=== PATIENT | male | born 1950 | race Two or more races ===

== ENCOUNTER 2022-10-12 16:05 | Inpatient (IN) | payer MEDICARE ==
[~2022-10-12] VITALS: Ht 172.7 cm; Wt 68.0 kg
--- NOTE | 2022-10-12 16:06 | NUR ---
BIB [facility] FROM [facility] C/O SHORTNESS OF BREATH SINCE BEING DISCHARGE FROM [facility]AVING PNEUMONIA 09/24,WORSE THE LAST COUPLE DAYS, RECEIVED 5MG ALBUTEROL MICRO PALEONTOLOGIST. THE PATIENT IS RECEIVED WEARING NON-REBREATHER WITH OXYGEN SAT AT 100%. THE PATIENT IS NOT ALERT. THE PATIENT IS ATTACHED TO THE MONITOR. WILL CONTINUE TO MONITOR THE PATIENT.
--- NOTE | 2022-10-12 16:35 | NUR ---
IV LINE IS ESTABLISHED, BLOOD SPECIMEN COLLECTED AND SENT TO THE LAB. THE LINE IS SALINE LOCKED.
--- NOTE | 2022-10-12 16:35 | NUR ---
CONDOMINIUM MANAGER AT THE BEDSIDE
--- NOTE | 2022-10-12 16:40 | NUR ---
COVID ANTIGEN SWAB DONE AND SENT TO THE LAB
[2022-10-12 16:56] LABS: BASOPHILS % (AUTO) 0.1 % (0.0-2.0); EOSINOPHILS % (AUTO) 0.2 % (0.0-6.0); HEMATOCRIT 29 % (39-51); HEMOGLOBIN 8.7 g/dL (13.5-17.5); LYMPHOCYTES # (AUTO) 0.4 K/uL (0.8-4.8); LYMPHOCYTES % (AUTO) 2.9 % (20.0-44.0); MEAN CORPUSCULAR HGB CONC 30 g/dl (31.0-36.0); MEAN CORPUSCULAR VOLUME 96 fL (80-96); MONOCYTES # (AUTO) 0.9 K/uL (0.1-1.30); MONOCYTES % (AUTO) 7.3 % (2.0-12.0); NEUTROPHILS # (AUTO) 11.3 K/uL (1.8-8.9); NEUTROPHILS % (AUTO) 89.5 % (43.0-81.0); PLATELET COUNT (AUTO) 190 K/uL (150-450); RED BLOOD CELL COUNT(AUTO) 3.04 MIL/uL (4.5-6.0); WHITE BLOOD COUNT (AUTO) 12.6 K/uL (4.3-11.0)
[2022-10-12 17:00] LABS: CALCIUM, SERUM 11.1 mg/dL (8.5-10.1); CARBON DIOXIDE 36 mmol/L (21-32); CHLORIDE 100 mmol/L (98-107); CREATININE 1.2 mg/dL (0.6-1.3); GLUCOSE 152 mg/dL (74-106); POTASSIUM 5.2 mmol/L (3.5-5.1); SODIUM SERUM 138 mmol/L (136-145); UREA NITROGEN, BLOOD 50 mg/dL (7-18)
[2022-10-12] MEDS ORDERED: PIPERACILLIN /TAZOBACTAM 3.375 G in IV D5W 50 ML IV ONE (17:00)
[2022-10-12] MEDS ORDERED: VANCOMYCIN 1 GM in IV D5W 250 ML IV ONE (17:00)
--- NOTE | 2022-10-12 17:16 | NUR ---
CALLED NURSING SUP GREGOR PT BED
[2022-10-12] MEDS ORDERED: FUROSEMIDE 40 MG/4 ML VIAL ONE (17:26)
[2022-10-12] MEDS ORDERED: FUROSEMIDE 40 MG/4 ML VIAL IV ONE (17:30)
--- NOTE | 2022-10-12 18:00 | NUR ---
PT PUT ON BIPAP VENTILATION PER MD ORDER 40% RATE OF 18 EPAP 5 O2 SAT 98%
--- NOTE | 2022-10-12 19:39 | NUR ---
RM CHANGE: 254
--- NOTE | 2022-10-12 20:18 | NUR ---
report given to Mikal TORRES
[2022-10-12] MEDS ORDERED: ONDANSETRON HCL/PF 4 MG/2 ML VIAL IVP PRN (20:30)
[2022-10-12] MEDS ORDERED: MAG HYDROX/AL HYDROX/SIMETH 30 ML UDC PO PRN (20:30)
[2022-10-12] MEDS ORDERED: MORPHINE SULFATE INJ 2 MG/ML DISP.SYRIN IV PRN (20:30)
[2022-10-12] MEDS ORDERED: ACETAMINOPHEN 325 MG TABLET PO PRN (20:30)
[2022-10-12] MEDS ORDERED: Z GUARD REMEDY 4 OZ OINT TP PRN (20:30)
[2022-10-12] MEDS ORDERED: MAGNESIUM HYDROXIDE 30 ML UDC PO PRN (20:30)
--- NOTE | 2022-10-12 21:12 | NUR ---
CATERING ATTENDANTSODA FOUNTAIN CLERK NOTES: RECEIVED REPORT FROM CAR PAINTER CLIVE. PT TRANSFERRED TO ICU FROM ER WITH ACLS PROTOCOL. PLACE ROOM 254 BED1. PT AWAKE, ALERT/ORIENTED X3-4 AND VERBALLY RESPONSIVE. ON SIMPLE MASK AT 8L/MIN, O2 SAT 97%. IV ACCESS ON RAC#18G AND LT HAND#18G INTACT AND PATENT. NO S/S OF INFILTRATIONS. CARDIAC MONITORING SINUS RHYTHM. NO C/O PAIN OR DISCOMFORT. NO ACUTE DISTRESS. ABLE TO USE URINAL. BODY ASSESSMENT DONE. NO SKIN DISCOLORATION ON KACIE AND OPEN SORE ON SACRAL AREA. ALL THER PART OF THE BODY INTACT, DRY TO TOUCH. ALL SAFETY MEASURES IN PLACE. BED IN LOWEST POSITION AND LOCKED. JOSHUA RAILS UP X3, PLACE CALL LIGHT WITH IN REACH. WILL CONTINUE TO MONITOR
--- NOTE | 2022-10-12 21:12 | NUR ---
RT NOTE PT RECEIVED ON SIMPLE MASK @ 10 LPM. PT TRANSFERRED FROM ER TO ICU BED 254. PT TOLERATES SIMPLE MASK AT THIS TIME. WILL CONTINUE TO MONITOR CLOSELY.
[2022-10-12 22:00] VITALS: BP 133/80
[2022-10-12] MEDS ORDERED: CEFEPIME 1 GM VIAL ONE (22:24)
[2022-10-12] MEDS: ENOXAPARIN SODIUM 40 MG/0.4 ML DISP.SYRIN SQ SCH (22:30)
[2022-10-12] MEDS: IV NS 0.9% 250 ML IV PRN (22:32)
[2022-10-12] MEDS: CEFEPIME 2 GM in IV D5W 100 ML IV SCH (22:35)
[2022-10-12 23:00] VITALS: BP 127/73
--- NOTE | 2022-10-12 23:20 | NUR ---
RT NOTE PT PLACED BACK ON BIPAP AT THIS TIME. BRIAN WALTER AWARE. WILL CONTINUE TO MONITOR.
[2022-10-13] VITALS (25 sets, daily range): BP systolic 112–151; BP diastolic 60–81
[2022-10-13] MEDS ORDERED: VANCOMYCIN 1 GM VIAL ONE (05:11)
[2022-10-13 05:19] LABS: EOSINOPHILS % (AUTO) 0.1 % (0.0-6.0); HEMATOCRIT 29 % (39-51); HEMOGLOBIN 8.8 g/dL (13.5-17.5); LYMPHOCYTES # (AUTO) 0.2 K/uL (0.8-4.8); LYMPHOCYTES % (AUTO) 2.2 % (20.0-44.0); MEAN CORPUSCULAR HGB CONC 30 g/dl (31.0-36.0); MEAN CORPUSCULAR VOLUME 96 fL (80-96); MONOCYTES # (AUTO) 0.8 K/uL (0.1-1.30); MONOCYTES % (AUTO) 6.7 % (2.0-12.0); NEUTROPHILS # (AUTO) 10.3 K/uL (1.8-8.9); PLATELET COUNT (AUTO) 175 K/uL (150-450); RED BLOOD CELL COUNT(AUTO) 3.02 MIL/uL (4.5-6.0); WHITE BLOOD COUNT (AUTO) 11.4 K/uL (4.3-11.0)
[2022-10-13] MEDS: VANCOMYCIN 0.75 GM in IV D5W 250 ML IV SCH ×2 (05:22→17:17)
[2022-10-13 05:33] LABS: ALBUMIN 2.6 g/dL (3.4-5.0); BILIRUBIN,DIRECT 0.1 mg/dL (0.0-0.2); BILIRUBIN,TOTAL 0.3 mg/dL (0.2-1.0); CALCIUM, SERUM 10.8 mg/dL (8.5-10.1); CREATININE 1.3 mg/dL (0.6-1.3); MAGNESIUM 1.9 mg/dL (1.8-2.4); PHOSPHORUS 5.8 mg/dL (2.5-4.9); POTASSIUM 4.9 mmol/L (3.5-5.1); TOTAL PROTEIN, SERUM 6.7 g/dL (6.4-8.2)
[2022-10-13 05:43] LABS: THYROID STIMULATING HORMONE 0.147 uIU/mL (0.358-3.74)
[2022-10-13] MEDS ORDERED: FURO40TA5 PO (05:58)
[2022-10-13] MEDS ORDERED: ABAC1TAB15 PO (05:58)
[2022-10-13] MEDS ORDERED: ASPI-1498 PO (05:58)
[2022-10-13] MEDS ORDERED: LEVO150T8 PO (05:58)
[2022-10-13] MEDS ORDERED: NEBI20TA2 PO (05:58)
[2022-10-13] MEDS ORDERED: VALS80TA2 PO (05:58)
[2022-10-13] MEDS ORDERED: ATOR20TA PO (05:58)
[2022-10-13] MEDS ORDERED: VIT (05:58)
[2022-10-13] MEDS ORDERED: CALCIFEROL PO (05:58)
[2022-10-13] MEDS ORDERED: DOXA2TAB2 PO (05:58)
--- NOTE | 2022-10-13 06:36 | NUR ---
HEAD GRINDER CLOSING NOTES: PT AWAKE, ALERT/ORIENTED X3-4 AND VERBALLY RESPONSIVE. ON BIPAP, O2 SAT 97%. IV ACCESS ON RAC#18G AND LFA#18G INTACT AND PATENT. NO S/S OF INFILTRATIONS. CARDIAC MONITORING SINUS RHYTHM. NO C/O PAIN OR DISCOMFORT. NO ACUTE DISTRESS. ABLE TO USE URINAL. ALL DUE MEDS GIVEN ORDERED. ALL SAFETY MEASURES IN PLACE. BED IN LOWEST POSITION AND LOCKED. SIDE RAILS UP X3, PLACE CALL LIGHT WITH IN REACH. WILL ENDORSE TO MORNING SHIFT NURSE.
--- NOTE | 2022-10-13 07:30 | NUR ---
RN OPENING NOTE PT RECEIVED IN BED ON BIPAP O2 SAT 100%. PT IS A/O X3. PT USES URINAL AT BEDSIDE. IV ACCESS R AC AND L FOREARM NO FLUIDS INFUSING AT THIS TIME. BED IS LOCKED IN LOWEST POSITION X2 BED RAILS UP CALL LOWRY IS WITHIN REACH AND ALL HOSPITAL SAFETY MEASURES ARE IN PLACE. WILL CONTINUE TO MONITOR THIS SHIFT.
--- NOTE | 2022-10-13 07:50 | NUR ---
RN NOTE: MRSA MRSA SPECIMEN COLLECTED AT THIS TIME AND READY FOR HOSPITAL CLINIC ASSISTANT
[2022-10-13] MEDS ORDERED: FUROSEMIDE 40 MG/4 ML VIAL IV SCH ×2 (09:00→10:30)
--- NOTE | 2022-10-13 09:13 | NUR ---
WOUND CARE CONSULT: PT PRESENTS WITH STAGE 3 SACRAL PRESSURE ULCER, PRESENT ON ADMISSION. RECOMMENDATIONS MADE FOR SKIN PROTECTION AND WOUND CARE. DISCUSSED WITH NURSING STAFF. DR LOPEZ CALLED FOR SURGICAL CONSULT. IN AGREEMENT WITH PLAN OF CARE. PT IS ON FABIANA ISOFLEX LOW AIRLOSS BED.
[2022-10-13] MEDS: CEFEPIME 2 GM in IV D5W 100 ML IV SCH ×2 (09:16→20:57)
--- NOTE | 2022-10-13 10:12 | NUR ---
RN NOTE: CODE STATUS PT REQUESTS TO BE DNR/DNI. MD HAS BEEN NOTIFIED AT THIS TIME.
--- NOTE | 2022-10-13 10:27 | NUR ---
RT PER DR FAY PATIENT WAS REMOVED FROM BIPAP AND ABG WAS DONE AFTER A HOUR. CO2 LEVELS INCREASED TO 117. PATIENT PLACED BACK ON BIPAP MACHINE. Addendum: 10/13/22 at 1029 by KATHY GEIGER RT Amended: Links added.
[2022-10-13] MEDS: ALBUTEROL HALF STRENGTH 1.25 MG/3 ML VIAL.NEB NEB SCH ×5 (10:30→23:41)
[2022-10-13] MEDS ORDERED: ALBU18HF2 IH (10:55)
[2022-10-13] MEDS ORDERED: ERGO500040 PO (10:55)
[2022-10-13] MEDS ORDERED: AMLO-212 PO (10:55)
[2022-10-13] MEDS: IPRATROPIUM NEB FS 0.5 MG/2.5 ML AMPUL.NEB NEB SCH ×4 (11:30→23:40)
[2022-10-13] MEDS: FUROSEMIDE 100 MG/10 ML VIAL IV SCH ×3 (12:23→19:29)
[2022-10-13] MEDS: methylPREDNISolone SOD SUCC 125 MG/2ML VIAL IV SCH ×3 (12:23→20:58)
--- NOTE | 2022-10-13 13:00 | NUR ---
RN NOTE: CONSENT AND RELEASE OF INFORMATION THIS RN CONTACTED JESÚS PINEDA (DPOA) AND COMPLETED 2 RN VERIFICATION VIA TELEPHONE FOR ULTRA SOUND GUIDED THORACENTESIS CONSENT AND ALSO CONSENT FOR DISCLOSURE OF HEALTH INFORMATION FROM [facility]. DISCLOSURE OF HEALTH INFORMATION FORM WAS FAXED TO [facility].
--- NOTE | 2022-10-13 15:09 | NUR ---
RN NOTE: UA SPECIMEN UA SPECIMEN COLLECTED AT THIS TIME AND READY FOR YEAST MAKER
[2022-10-13 16:24] LABS: BILIRUBIN,URINE NEGATIVE (NEGATIVE); COLOR,URINE YELLOW (YELLOW); LEUKOCYTE ESTERASE ,URINE NEGATIVE (NEGATIVE); NITRITE, URINE NEGATIVE (NEGATIVE); PROTEIN,URINE 1+ mg/dl (NEGATIVE); UGLUCOSE NEGATIVE (NEGATIVE); UROBILINOGEN,URINE 0.2 EU/dL (0.2)
--- NOTE | 2022-10-13 16:30 | NUR ---
PERCOLATOR OPERATOR ABG DRAWN BY RT. RESULTS SHOWN TO DR FAY. BIPAP SETTING CHANGE ORDERED. UPDATE GIVEN TO JESÚS PT'S PARTNER. PT CONTINUES TO BE DNR/DNI STATUS.
[2022-10-13] MEDS: PROSOURCE / PROSTAT (PYXIS) 30 ML UDC GT SCH (17:00)
[2022-10-13 17:03] LABS: WBC,URINE 0-2 /HPF (0-3)
[2022-10-13 17:04] LABS: BACTERIA,URINE Moderate /HPF (None Seen); SQUAMOUS EPITHELIAL CELL,UR Few /HPF (None Seen)
--- NOTE | 2022-10-13 19:40 | NUR ---
TOOL SHARPENER OPENING NOTES: RECEIVED PT IN BED, SLEEPING BUT EASILY AROUSABLE. ALERT/ORIENTED X3-4 AND RESPONSIVE. ON BIPAP 25/5, RATE-24%. FIO2-40%. O2 SAT 100%. IV ACCESS ON RAC#18G AND LFA#18G INTACT AND PATENT. NO S/S OF INFILTRATIONS. NO C/O PAIN OR DISCOMFORT. NO ACUTE DISTRESS. QUINTEROS CATHETER IN PLACE. DRAINING BY GRAVITY. NOTED YELLOWISH/CLEAR URINE. ALL SAFETY MEASURES IN PLACE. BED IN LOWEST POSITION AND LOCKED. SIDE RAILS UP X3, PLACE CALL LIGHT WITH IN REACH. WILL CONTINUE TO MONITOR.
--- NOTE | 2022-10-13 20:07 | NUR ---
RN NOTES: RECEIVED ABG RESULT. NOTIFIED DR. FAY. PER NYA, NO CHANGES. ANOTHER ABG WILL BE IN THE MORNING. NOTED AND CARRIED OUT.
[2022-10-13] MEDS: THERAHONEY GEL 1.5 OZ TUBE TP SCH (20:57)
[2022-10-13] MEDS: ENOXAPARIN SODIUM 40 MG/0.4 ML DISP.SYRIN SQ SCH (20:59)
[2022-10-14] VITALS (29 sets, daily range): BP systolic 110–147; BP diastolic 56–88
[2022-10-14] MEDS: ALBUTEROL HALF STRENGTH 1.25 MG/3 ML VIAL.NEB NEB SCH ×6 (03:26→23:13)
[2022-10-14] MEDS: IPRATROPIUM NEB FS 0.5 MG/2.5 ML AMPUL.NEB NEB SCH ×6 (03:26→23:13)
[2022-10-14] MEDS: methylPREDNISolone SOD SUCC 125 MG/2ML VIAL IV SCH ×3 (05:51→21:55)
[2022-10-14 05:59] LABS: HEMATOCRIT 26 % (39-51); HEMOGLOBIN 8.2 g/dL (13.5-17.5); LYMPHOCYTES # (AUTO) 0.1 K/uL (0.8-4.8); LYMPHOCYTES % (AUTO) 1.4 % (20.0-44.0); MEAN CORPUSCULAR HGB CONC 31 g/dl (31.0-36.0); MEAN CORPUSCULAR VOLUME 94 fL (80-96); MONOCYTES # (AUTO) 0.3 K/uL (0.1-1.30); MONOCYTES % (AUTO) 3.7 % (2.0-12.0); NEUTROPHILS # (AUTO) 8.4 K/uL (1.8-8.9); NEUTROPHILS % (AUTO) 94.9 % (43.0-81.0); PLATELET COUNT (AUTO) 167 K/uL (150-450); WHITE BLOOD COUNT (AUTO) 8.9 K/uL (4.3-11.0)
[2022-10-14] MEDS: IV NS 0.9% 250 ML IV PRN (06:03)
--- NOTE | 2022-10-14 06:40 | NUR ---
MORTGAGE COUNSELOR CLOSING NOTES: PT IN BED, SLEEPING BUT EASILY AROUSABLE. ALERT/ORIENTED X3-4 AND RESPONSIVE. ON BIPAP 25/5, RATE-24%. FIO2-40%. O2 SAT 100%. NO SIGNIFICANT CHANGES DURING THIS SHIFT. IV ACCESS ON RAC#18G AND LFA#18G INTACT AND PATENT. NO S/S OF INFILTRATIONS. NO C/O PAIN OR DISCOMFORT. NO ACUTE DISTRESS. QUINTEROS CATHETER IN PLACE. DRAINING BY GRAVITY. NOTED YELLOWISH/CLEAR URINE. ALL DUE MEDS GIVEN ORDERED. ALL SAFETY MEASURES IN PLACE. BED IN LOWEST POSITION AND LOCKED. SIDE RAILS UP X3, PLACE CALL LIGHT WITH IN REACH. WILL ENDORSE TO MORNING SHIFT NURSE.
[2022-10-14 06:52] LABS: ALBUMIN 2.4 g/dL (3.4-5.0); BILIRUBIN,TOTAL 0.3 mg/dL (0.2-1.0); CALCIUM, SERUM 10.5 mg/dL (8.5-10.1); CREATININE 1.3 mg/dL (0.6-1.3); POTASSIUM 4.2 mmol/L (3.5-5.1); TOTAL PROTEIN, SERUM 6.4 g/dL (6.4-8.2)
[2022-10-14 07:07] LABS: *BASOS 0 % (Not Estab.); *EOS 0 % (Not Estab.); *HGB 9.2 g/dL (13.0-17.7); *IMMATURE GRANULOCYTES 1 % (Not Estab.); *IMMATURE GRANULOCYTES(ABS) 0.2 x10E3/uL (0.0-0.1); *LYMPHOCYTES 2 % (Not Estab.); *LYMPHS, ABSOLUTE 0.3 x10E3/uL (0.7-3.1); *MCH 29.8 pg (26.6-33.0); *MCHC 31.7 g/dL (31.5-35.7); *MCV 94 fL (79-97); *MONOCYTES 5 % (Not Estab.); *MONOS, ABSOLUTE 0.6 x10E3/uL (0.1-0.9); *NEUTROPHILS 92 % (Not Estab.); *NEUTROPHILS, ABSOLUTE 11.7 x10E3/uL (1.4-7.0); *PLT 176 x10E3/uL (150-450); *RBC 3.09 x10E6/uL (4.14-5.80); *RDW 13.2 % (11.6-15.4)
--- NOTE | 2022-10-14 07:10 | NUR ---
PT. IS AWAKE AND ALERT PLACE INTO NASAL CANNULA @ 2 LPM OXYGEN FLOW. B IPAP ON STAND BY @ BEDSIDE Addendum: 10/14/22 at 0742 by GRACE GUSMAN RT Amended: Links added.
[2022-10-14] MEDS: VANCOMYCIN 0.75 GM in IV D5W 250 ML IV SCH ×2 (07:16→16:15)
[2022-10-14] MEDS: THERAHONEY GEL 1.5 OZ TUBE TP SCH (10:58)
[2022-10-14] MEDS: PROSOURCE / PROSTAT (PYXIS) 30 ML UDC GT SCH ×2 (10:58→17:04)
[2022-10-14] MEDS: CEFEPIME 2 GM in IV D5W 100 ML IV SCH ×2 (10:58→21:55)
[2022-10-14 13:07] LABS: *% CD 4 POS. LYMPH 6.1 % (30.8-58.5); *% CD 8 POS. LYMPH 10.8 % (12.0-35.5); *ABSOLUTE CD 4 HELPER 18 /uL (359-1519); *ABSOLUTE CD 8 SUPPRESSOR 32 /uL (109-897); *CD4/CD8 RATIO 0.56 (0.92-3.72)
--- NOTE | 2022-10-14 14:27 | NUR ---
rn note thoracentesis done at bedside. drained 120 ml. results send to lab.pt tolerated well. vital signs stable Addendum: 10/14/22 at 1639 by SHELDON ROLLINS RN stat chest xray completed at a earlier time
[2022-10-14] MEDS ORDERED: acetaZOLAMIDE SODIUM 500 MG/VIAL VIAL IV ONE (16:30)
--- NOTE | 2022-10-14 19:15 | NUR ---
Pt is noted responsive but very Lethargic as he is DNR/DNI with called light in reach fall and Aspiration precautions in place and pt is on Clear Liquids diets as report is received from the off going nurse pt was unable swallow soiled food . Sinus Rhythm on the Tele monitor, Diminished Lungs sound , 02 2Liters Nasal Cannula, skin dry, warm with skin areas noted. Pt is also noted with Laird Cath, IV Access x2 18g with Antibiotic IVPB therapy. Pt is S/P Thoracentesis with 120ML out put per day shift report. Pt care continue as he is been monitor closely for any S/S off distress or change in conditions during the shift.
--- NOTE | 2022-10-14 19:52 | NUR ---
MEDICAL BILLER/CODER CLOSING NOTES: PT IN BED, SLEEPING BUT EASILY AROUSABLE. PT ON TELE MONITOR. ALERT/ORIENTED X3-4 AND RESPONSIVE. ON 2l NASAL CANNULA O2 SAT 100%. . IV ACCESS ON RAC#18G AND LFA#18G INTACT AND PATENT. NO S/S OF INFILTRATIONS. NO C/O PAIN OR DISCOMFORT AT THIS TIME. .QUINTEROS CATHETER IN PLACE. YELLOW COLOR DRAINING BY GRAVITY.WOUND CARE DONE.TURNED AND REPOSITIONED. HEAD OF BED ELEVATED AT ALL TIMES. ALL SAFETY MEASURES IN PLACE. BED IN LOWEST POSITION AND LOCKED. SIDE RAILS UP X3, PLACE CALL LIGHT WITH IN REACH. ENDORSED TO FREIGHT ENGINEER RN FOR CONMDIY OF CARE
--- NOTE | 2022-10-14 20:28 | NUR ---
Pt remain Lethargic and DNR/DNI as family brought in home Medication off Triumeq PO that he take daily, Charge Nurse is aware and MD is page if OK to continue medication and Pharmacy is also notify. Pt care continue as awaits MD called or text back.
--- NOTE | 2022-10-14 21:50 | NUR ---
Pt is becoming more Lethargic as he is now on BiPAP therapy with setting 20/5, 14 and 30% and also , orders noted for Swallow Evaluations in AM. Pt care continue with family at bedside.
--- NOTE | 2022-10-14 21:53 | NUR ---
PT PLACED ON NOC BIPAP RN NOTIFIED.
--- NOTE | 2022-10-14 22:30 | NUR ---
Pt is resting with BiPAP therapy in progress as he is been monitor closely. Pt care continue.
--- NOTE | 2022-10-14 23:00 | NUR ---
Pt remain DNR/DNI with BiPAP therapy in progress as RN rounding while assessing Pt and notice Pt is nonresponsive at these hour, Charge Nurse called upon.
--- NOTE | 2022-10-14 23:05 | NUR ---
Charge Nurse Isabella Pronounced as Pt is DNR/DNI.
--- NOTE | 2022-10-14 23:10 | NUR ---
Charge Nurse called family Isrrael Jeong at [phone].
--- NOTE | 2022-10-14 23:11 | NUR ---
CHARGED BRIAN CHU NOTIFIED ME THAT PT .
--- NOTE | 2022-10-14 23:15 | NUR ---
Pt is clean up with the help off charge Nurse.
--- NOTE | 2022-10-14 23:20 | NUR ---
Family Isrrael Jeong noted on the unit at bedside.
--- NOTE | 2022-10-14 23:25 | NUR ---
Zainab called spoke with Stephanie Masterson with case#[id number] . Pt still in room with family at bedside.
--- NOTE | 2022-10-14 23:36 | NUR ---
RN/ICU-PRONOUNCEMENT OF -CODE STATUS"DO NOT RESUSCITATE, DO NOT INTUBATE".UNRESPONSIVE TO ANY FORM OF STIMULI. PUPILS ARE FIXED AND DILATED. ALL EXTREMITIES ARE FLACCID. APNEIC, RR=0, EKG ASYSTOLE X2 LEADS, PERIPHERAL PULSES ARE ABSENT. WITH ABSENT HEART TONES. NO SIGNS OF LIFE. PT. PRONOUNCED AT 2305 BY:VLAD VARGAS RN/BSN
--- NOTE | 2022-10-15 01:24 | NUR ---
BODY IS PICKUP BY [facility].
[2022-10-15 12:53] LABS: ABG OXYGEN SATURATION 92.6 % (92.0-98.5); ABG PCO2 64.9 mmHg (35.0-45.0); ABG PH 7.392 (7.350-7.450); ABG PO2 67.5 mmHg (75.0-100.0); AaDO2 55.6 mmHg; MetHb 0.2 % (0.0-1.5); O2Hb 91.5 % (94.0-97.0); SITE, ABG Right Radial; VENT MODE, BG nasal cannula
== END 2022-10-14 23:43 | DRG 177 ==
LOC: ER 16:59 → ICU 19:28
PROVIDERS: ADMIT Internal Medicine
PROC: 5A09457 Assistance with Respiratory Ventilation, 24-96 Consecutive Hours, Continuous Positive Airway Pressure (ICD-10-PCS; principal; 2022-10-12)
PROC: 0W9B3ZX Drainage of Left Pleural Cavity, Percutaneous Approach, Diagnostic (ICD-10-PCS; 2022-10-14)
DX: J15.6 Pneumonia due to other Gram-negative bacteria (principal); G93.41 Metabolic encephalopathy; L89.153 Pressure ulcer of sacral region, stage 3; J96.01 Acute respiratory failure with hypoxia; N17.0 Acute kidney failure with tubular necrosis; I50.33 Acute on chronic diastolic (congestive) heart failure; J96.02 Acute respiratory failure with hypercapnia; R64 Cachexia; E87.4 Mixed disorder of acid-base balance; I11.0 Hypertensive heart disease with heart failure; Z20.822 Contact with and (suspected) exposure to COVID-19; Z95.810 Presence of automatic (implantable) cardiac defibrillator; Z86.73 Personal history of transient ischemic attack (TIA), and cerebral infarction without residual deficits; Z79.82 Long term (current) use of aspirin; Z79.899 Other long term (current) drug therapy; Z85.89 Personal history of malignant neoplasm of other organs and systems; I70.0 Atherosclerosis of aorta; E88.09 Other disorders of plasma-protein metabolism, not elsewhere classified; D63.8 Anemia in other chronic diseases classified elsewhere; D50.9 Iron deficiency anemia, unspecified; E83.52 Hypercalcemia; E87.5 Hyperkalemia; E83.39 Other disorders of phosphorus metabolism; Z66 Do not resuscitate
CPT/HCPCS: 36415; 36600; 71045-TC; 80048-TC; 80053-TC; 80076-TC; 80202-TC; 81001; 82803-TC; 83540-TC; 83605-TC; 83735-TC; 83880; 84100-TC; 84443-TC; 84484-TC; 85025-TC; 85730-TC; 86360; 87040-TC; 87081-TC; 87086-TC; 87102-TC; 89051-TC; 93307-TC; 94799-TC; 99082-TC; A4223; C9803; G0378; J0692; J1120; J1650; J1940; J2543; J2930; J3370; J7050; J7060